=== PATIENT | female | born 1985 | race African-American/Black ===

== ENCOUNTER 2020-11-05 19:48 | Emergency (ER) | payer SELFPAY ==
[~2020-11-05] VITALS: Ht 152.4 cm; Wt 88.2 kg
[2020-11-05 20:02] VITALS: BP 130/81
== END 2020-11-05 22:41 | disposition left against medical advice (07) ==
LOC: ER 19:48
DX: Z53.21 Procedure and treatment not carried out due to patient leaving prior to being seen by health care provider (principal)
CPT/HCPCS: 93005